=== PATIENT | male | born 1950 | race Caucasian/White ===

== ENCOUNTER 2017-06-08 07:56 | Outpatient (CLI) | payer MEDICARE, OTHER ==
--- NOTE | 2017-06-08 10:34 | MRI ---
MRI LUMBAR SPINE NONCONTRAST: DATE: 06-08-17 HISTORY: 67-year-old male with M51.16 lumbar disc disease with radiculopathy. Low back pain and left lumbar radiculopathy for approximately 2 weeks. COMPARISON: No prior MRIs. FINDINGS: The CT of the chest, abdomen, and pelvis of 02-04-14 is used to count the levels of the lumbar spine. That CT demonstrates 12 paired ribs. If the first non-rib bearing is designated as L1, then the tra nsitional level at the lumbosacral junction will be designated as L6 for the purposes of this report . Several small T2 hyperintense lesions of the right kidney, only partially included in the field of v iew, were not present on the CT of 02-04-14. Statistically, these most likely represent cysts, but co nfirmation with renal ultrasound is recommended. There are numerous bridging osteophytes protruding anteriorly into the prevertebral space throughout the lower thoracic spine and almost the entire lumbar spine (DISH). Vertebral body heights are main tained. There is heterogeneously moderately T1 hypointense bone marrow signal. This is nonspecific b ut common causes include red marrow conversion and senescent marrow changes. Marrow infiltrative pro cesses such as multiple myeloma and myelofibrosis, are less common. Other than the anterior bridgin g osteophytes, the findings by individual levels are as follows: T12-L1: Only imaged on sagittal sequences. Normal. L1-2: Normal. The conus medullaris terminates at upper L2 level. L2-3: Disc space maintained. No central spinal canal stenosis. Mild bilateral degenerative facet hyp ertrophy. A focal right facet osteophyte abuts and mildly chronically displaces the right exiting L2 nerve root in the right neural foramen, causing moderate right neural foraminal stenosis. Mild left neural foraminal stenosis. L3-4: Disc space maintained. Prominent diffuse disc bulge. Mild to moderate ligamentum flavum thicke lacey. Moderate bilateral degenerative facet hypertrophy. Moderate central spinal canal stenosis. Mod erate to severe thecal sac stenosis. Moderate right neural foraminal stenosis. Severe left neural fo raminal stenosis. L4-5: Severe bilateral degenerative facet disease causes a grade I anterolisthesis of L4 on L5. Diff use disc bulge. Moderate bilateral neural foraminal stenosis, left worse than right. Moderate ligame ntum flavum thickening and severe facet hypertrophy results in moderate central spinal canal stenosi s. Mild disc space narrowing. L5-6: Moderate sized focal central and right paracentral chronic disc/osteophyte complex (which was present on 02-04-14) indents the ventral aspect of the thecal sac, and laterally displaces the right L6 nerve root. Despite its size, it only causes a mild degree of central spinal canal stenosis. Selena re disc space narrowing. Chronic slight degenerative retrolisthesis of L5 on L6. Moderate to severe right neural foraminal stenosis. Moderate left neural foraminal stenosis. Mild bilateral degenerativ e facet changes. L6-S1: Bilateral L6 alae are fused with the S1 alae. Hypoplastic disc. Hypoplastic bilateral facet j oints. No central or neural foraminal stenosis. IMPRESSION: 1. Lumbar spondylosis, including severe facet osteoarthrosis at L4-5, and severe degenerative disc d isease at L5-6. 2. Transitional level at lumbosacral junction: L6, which is bilaterally fused to S1. 3. Moderate central spinal canal stenosis at L3-4 and L4-5. 4. High grade bilateral neural foraminal stenosis at L3-4, L4-5, and L5-6. 5. Chronic, moderate sized central and right paracentral disc/osteophyte complex at L5-6 chronically impinging on the right L6 nerve root. 6. Grade I spondylolisthesis at L4-5 due to the severe facet osteoarthrosis at this level. This spon dylolisthesis has progressed slightly since 2014. 7. Recommend renal ultrasound to further evaluate several T2 hyperintense lesions in the right kidne y. 8. Diffuse idiopathic skeletal hyperostosis (DISH). LAMONT R POS: LONNY
--- OUTSIDE RECORDS SUMMARY | 2017-06-09 01:06 | XMS | Clinical Summary ---
:1950 Author Organization [facility] Address [address] [place] [address] Phone Care Team Providers Name Role Phone , Primary Care Provider Unavailable Allergies Not on File Current Medications Not on file Active Problems Not on file Social History Tobacco Use Types Packs/Day Years Used Date Never Assessed Sex Assigned at Date Recorded Not on file Last Filed Vital Signs Not on file Plan of Treatment Not on file Results Not on filefrom Last 3 Months
== END 2017-06-08 07:57 | disposition home or self-care (01) ==
LOC: MRI 07:56
PROVIDERS: ATTEND Nurse Practitioner Family
DX: M51.16 Intervertebral disc disorders with radiculopathy, lumbar region (principal); M47.26 Other spondylosis with radiculopathy, lumbar region; M43.16 Spondylolisthesis, lumbar region; M48.061 Spinal stenosis, lumbar region without neurogenic claudication; M25.78 Osteophyte, vertebrae; M48.16 Ankylosing hyperostosis [Forestier], lumbar region; Z98.1 Arthrodesis status
CPT/HCPCS: 72148

== ENCOUNTER 2018-08-17 12:17 | Outpatient (CLI) | payer MEDICARE ==
--- NOTE | 2018-08-17 13:56 | RAD ---
PA AND LATERAL CHEST XRAY: DATE: 08/17/2018. HISTORY: Preoperative evaluation. COMPARISON: 02/05/2014. FINDINGS: Cardiac silhouette and pulmonary vasculature are within normal limits. The lungs are expanded and cl ear on today's examination with resolution of parenchymal changes at each lung base on the prior exam . There is persistent elevation of the right hemidiaphragm. Multiple remote left-sided rib fracture s are present. Degenerative changes are noted in the spine. There is a metallic clip overlying the right lung apex. This area is excluded on the lateral projection. IMPRESSION: 1. No acute cardiopulmonary process. 2. Remote left-sided rib fractures. 3. Metallic clip overlying the right lung apex. The exact location is difficult to determine. 4. Osseous densities adjacent to the medial aspect left femoral neck which could be related to eithe r heterotopic ossification or possibly intraarticular loose bodies. POS: LONNY
[2018-08-17 14:03] LABS: #Basophils 0.1 thou/uL (0.0-0.2); #Eosinphils 0.1 thou/uL (0.0-0.7); #Lymphocytes 1.1 thou/uL (1.20-3.40); #Monocytes 0.4 thou/uL (0.11-0.59); #Neutrophils 3.1 thou/uL (1.40-6.50); %Basophils 1.3 % (0.0-1.0); %Eosinophils 2.6 % (0.0-10.0); %Lymphocytes 21.9 % (21.0-51.0); %Neutrophils 65.2 % (42.0-75.0); Hemoglobin 15.7 g/dL (14.0-18.0); Mean Corpuscular HGB CONC 35.4 g/dL (32.0-36.0); Mean Corpuscular Hemoglobin 32.9 pg (27.0-31.0); Mean Corpuscular Volume 92.9 fL (78.0-98.0); Mean Platelet Volume 7.9 fL (7.4-10.4); Platelet Count 195 thou/uL (130-400); RBC Distribution Width 11.1 % (11.5-14.5); Red Blood Cell (RBC) Count 4.77 mill/uL (4.70-6.10); White Blood Cell (WBC) Count 4.8 thou/uL (4.8-10.8)
[2018-08-17 14:47] LABS: Anion Gap 15 mmol/L (10-20); BUN (Urea Nitrogen) 11 mg/dL (8.4-25.7); Calc. Creatinine Clearance 0 mL/min (70-130); Calcium 9.4 mg/dL (7.8-10.44); Carbon Dioxide 23 mmol/L (23-31); Chloride 106 mmol/L (98-107); Estimated GFR-MDRD Greater than 90; Glucose 92 mg/dL (80-115); Potassium 4.3 mmol/L (3.5-5.1); Sodium 140 mmol/L (136-145)
== END 2018-08-17 12:18 | disposition home or self-care (01) ==
LOC: LABBT 12:17
PROVIDERS: ATTEND Specialist
DX: Z01.818 Encounter for other preprocedural examination (principal); K42.9 Umbilical hernia without obstruction or gangrene
CPT/HCPCS: 71046; 80048; 85025; 93005; 93010

== ENCOUNTER 2018-08-21 07:01 | Day surgery (SDC) | payer MEDICARE ==
[2018-08-17 12:44] VITALS: BMI 42.8
[2018-08-21] MEDS ORDERED: Bupivacaine/Epinephrine 0.25% 30 ML VIAL ONE (07:14)
[2018-08-21] MEDS ORDERED: CEFAZOLIN 2 GM/50 ML BAG ONE (07:21)
[2018-08-21] MEDS ORDERED: Ketorolac Tromethamine 30 MG/ML VIAL ONE (07:21)
[2018-08-21] MEDS ORDERED: Fentanyl 100 MCG/2 ML VIAL ONE ×3 (07:55→10:34)
[2018-08-21] MEDS ORDERED: SUGAMMADEX SODIUM 200 MG/2 ML VIAL ONE (09:34)
[2018-08-21] MEDS ORDERED: Ondansetron PF 4 MG/2 ML Vial ONE ×2 (10:16→10:50)
[2018-08-21] MEDS ORDERED: Lidocaine 1% PF 5 ML VIAL ONE (10:50)
[2018-08-21] MEDS ORDERED: Dexamethasone 20 MG/5 ML VIAL ONE (10:50)
[2018-08-21] MEDS ORDERED: PROPOFOL 200 MG/20 ML VIAL ONE (10:50)
[2018-08-21] MEDS ORDERED: Glycopyrrolate 0.2 MG/ML 5 ML SYRINGE ONE (10:50)
[2018-08-21] MEDS ORDERED: HYDROcodone/Acetaminophen 5/325 mg Tablet ONE (11:55)
--- NOTE | 2018-08-22 00:44 | OP ---
DATE OF PROCEDURE: 08/21/2018 PREOPERATIVE DIAGNOSES: Ventral abdominal hernia, morbid obesity. POSTOPERATIVE DIAGNOSES: Ventral abdominal hernia, morbid obesity. OPERATION PERFORMED: Laparoscopic ventral hernia repair with mesh using an 8 cm Ventralex mesh patch. ANESTHESIA: General endotracheal. INDICATIONS FOR PROCEDURE: The patient is a 68-year-old white male. He has a BMI over 40. He presents with a symptomatic hernia at and above the level of the umbilicus. He is taken to the operating room at this time for repair. Laparoscopic approach is chosen secondary to the potential wound complications related to his obesity. DESCRIPTION OF OPERATION: Informed consent was obtained. The patient was taken to the operating room where general endotracheal anesthesia was obtained with the patient in supine position. Abdomen was prepped with ChloraPrep and draped in sterile fashion. Local anesthetic was infiltrated using 0.25% Marcaine with epinephrine. A 5 mm left lateral incision was created through which a Veress needle was passed into the peritoneal cavity. Pneumoperitoneum established using carbon dioxide up to pressure of 15 mmHg. A 5 mm trocar port was passed through this same incision. Laparoscopic camera was passed through this port. Under direct vision, two additional ports were placed including a 12 mm left upper quadrant port and a 5 mm left lower quadrant port. Attention was turned to the abdominal wall. The hernia defect was quickly visualized. There was preperitoneal fat surrounding the defect and this was dissected using electrocautery, maintaining hemostasis. The preperitoneal fat was completely cleared and the defect was completely cleared. This appeared to be a little over 2 cm in diameter. The defect was closed using 3 interrupted sutures of 2-0 Ethibond placed with GraNee needle. I placed a 4th suture of 0 Ethibond internally using the needle bottom hoop driver. At which time, I obtained a small bite of the dermis of the umbilicus to help it invert. All sutures were tied leading to excellent inversion and complete closure of the defect. An 8 cm Ventralex mesh patch was obtained. Tails were trimmed away from this. Four quadrants sutured of 0 Ethibond were placed around the circumference of this and it was passed into the abdominal cavity. These 4 sutures were withdrawn through the abdominal wall at appropriate locations around the hernia defect, providing excellent coverage around the hernia. These were each secured so as to pull the mesh snugly against the abdominal wall. I then fired a series of suture straps around the periphery of the mesh and internally as well. There was one omental adhesion to the anterior abdominal wall in the left upper quadrant from prior surgery. This was taken down with electrocautery. The fascial defect at the left upper quadrant was closed with 0 Vicryl sutures and GraNee needle. All ports and instruments were removed under direct vision. Pneumoperitoneum was carefully evacuated. 0.25% Marcaine with epinephrine was infiltrated at each port site. Skin edges approximated with 4-0 Monocryl subcuticular suture. Dermabond was placed externally. I had finally placed a compression dressing within the umbilicus using cotton balls and a Tegaderm in the usual fashion. There were no complications. The patient tolerated the procedure well and was taken to recovery room in stable condition. Job ID: [id number]
== END 2018-08-22 13:10 | disposition home or self-care (01) ==
LOC: SDC 07:01
PROVIDERS: ATTEND Specialist
PROC: 0WUF4JZ Supplement Abdominal Wall with Synthetic Substitute, Percutaneous Endoscopic Approach (ICD-10-PCS; principal; 2018-08-21)
DX: K43.9 Ventral hernia without obstruction or gangrene (principal); I10 Essential (primary) hypertension; E07.9 Disorder of thyroid, unspecified; E66.01 Morbid (severe) obesity due to excess calories; Z68.41 Body mass index [BMI] 40.0-44.9, adult; Z79.899 Other long term (current) drug therapy; Z88.6 Allergy status to analgesic agent; Z98.84 Bariatric surgery status
CPT/HCPCS: 49652; 96374; C1781; J0131; J1100; J1885; J2001; J2405; J2704; J3010

== ENCOUNTER 2021-09-15 13:37 | Outpatient (CLI) | payer MEDICARE ==
[2021-09-15 15:23] LABS: #Basophils 0.1 10x3/uL (0.0-0.2); #Eosinphils 0.2 10x3/uL (0.0-0.5); #Monocytes 0.5 10x3/uL (0.0-1.1); %Basophils 1.7 % (0.0-2.0); %Eosinophils 2.9 % (0.0-6.0); %Lymphocytes 19.5 % (18.0-47.0); %Monocytes 8.4 % (0.0-10.0); %Neutrophils 67.3 % (40.0-75.0); Mean Corpuscular HGB CONC 34.7 g/dL (32.0-36.0); Mean Corpuscular Hemoglobin 32.6 pg (27.0-33.0); Mean Corpuscular Volume 93.9 fl (81.2-95.1); Mean Platelet Volume 10.1 fl (7.4-10.4); Platelet Count 193 10x3/uL (150-450); RBC Distribution Width 12.3 % (11.5-14.5)
[2021-09-15 15:48] LABS: Prothrombin Time 10.9 sec (9.5-12.1)
[2021-09-15 15:50] LABS: Anion Gap 12 mmol/L (10-20); BUN (Urea Nitrogen) 15 mg/dL (8.4-25.7); Calc. Creatinine Clearance 0 mL/min (70-130); Calcium 8.9 mg/dL (7.8-10.44); Carbon Dioxide 26 mmol/L (23-31); Chloride 105 mmol/L (98-107); Glucose 92 mg/dL (83-110); Potassium 5.4 mmol/L (3.5-5.1); Sodium 138 mmol/L (136-145)
[2021-09-16 12:27] LABS: SARS-CoV-2 PCR by NAA Not Detected (NotDetected)
== END 2021-09-15 13:38 | disposition home or self-care (01) ==
LOC: LABBT 13:37
PROVIDERS: ATTEND Orthopaedic Surgery
DX: Z01.818 Encounter for other preprocedural examination (principal); M17.12 Unilateral primary osteoarthritis, left knee; Z20.822 Contact with and (suspected) exposure to COVID-19
CPT/HCPCS: 80048; 85025; 85610; 87081; 93005; U0003; U0005; 93010

== ENCOUNTER 2021-09-20 05:18 | Observation (INO) | payer MEDICARE ==
[2021-09-20] MEDS ORDERED: VANCOMYCIN 2 GRAM/400 ML BAG 2 GM in Premix Bag 1 BAG IVPB SCH (06:00)
[2021-09-20] MEDS ORDERED: Sodium Chloride 0.9% 100 ML ONE (06:09)
[2021-09-20] MEDS ORDERED: Tranexamic Acid 1,000 MG/10 ML VIAL ONE (06:09)
[2021-09-20] MEDS ORDERED: Midazolam HCl 2 mg/2 ml Vial ONE (06:40)
[2021-09-20] MEDS ORDERED: Lidocaine 1% (PF) 30 ML VIAL ONE (06:40)
[2021-09-20] MEDS ORDERED: Fentanyl 100 MCG/2 ML VIAL ONE ×5 (06:40→09:50)
[2021-09-20] MEDS ORDERED: Promethazine HCl 25 MG/ML VIAL IM PRN ×3 (06:52→09:30)
[2021-09-20] MEDS ORDERED: diphenhydrAMINE 25 MG CAP PO PRN (06:52)
[2021-09-20] MEDS ORDERED: Ondansetron PF 4 MG/2 ML Vial IVP PRN ×2 (06:52→09:30)
[2021-09-20] MEDS ORDERED: Acetaminophen 325 MG TAB PO PRN (06:52)
[2021-09-20] MEDS ORDERED: HYDROcodone/Acetaminophen 10/325 mg Tablet PO PRN ×2 (06:52)
[2021-09-20] MEDS ORDERED: Fentanyl 100 MCG/2 ML VIAL SLOW IVP PRN ×2 (06:52)
[2021-09-20] MEDS ORDERED: Zolpidem Tartrate 5 MG TAB PO PRN ×2 (06:52→09:30)
[2021-09-20] MEDS ORDERED: ceFAZolin 2 GM/Dextrose 50 ML IVPB ONE (07:16)
[2021-09-20] MEDS ORDERED: Bupivacaine HCl 0.5%/Epinephrine 1:200,000/PF 30 ml Vial ONE (07:25)
[2021-09-20] MEDS ORDERED: Ondansetron PF 4 MG/2 ML Vial ONE (07:25)
[2021-09-20] MEDS ORDERED: Dexamethasone 20 MG/5 ML VIAL ONE (07:25)
[2021-09-20] MEDS ORDERED: Ketorolac Tromethamine 30 MG/ML VIAL ONE (07:25)
[2021-09-20] MEDS ORDERED: PROPOFOL 200 MG/20 ML VIAL ONE (07:25)
[2021-09-20] MEDS ORDERED: Bupivacaine PF 0.5% 30 ML VIAL ONE (08:28)
[2021-09-20] MEDS ORDERED: Promethazine HCl 25 MG/ML VIAL IVPB PRN (09:15)
[2021-09-20] MEDS ORDERED: Ondansetron HCl/PF 4 MG/2 ML Vial IVP PRN (09:15)
[2021-09-20] MEDS ORDERED: Fentanyl 100 MCG/2 ML VIAL IV PRN (09:21)
[2021-09-20] MEDS ORDERED: Ropivacaine 0.2% 550 ML 550 ML NERVE BLCK SCH (09:30)
[2021-09-20] MEDS ORDERED: traMADol HCl 50 MG TAB PO PRN ×2 (09:30)
[2021-09-20] MEDS ORDERED: hydrALAZINE 20 MG/ML VIAL ONE (10:09)
[2021-09-20] MEDS ORDERED: Labetalol HCl 100 MG/20 ML VIAL ONE (10:09)
[2021-09-20] MEDS: Amlodipine 5 mg/Benazepril 20 mg CAP PO SCH (11:50)
[2021-09-20] MEDS: Prenatal Vitamin 1 TAB PO SCH (11:51)
[2021-09-20] MEDS: Aspirin 81 mg Enteric Coated Tablet PO SCH ×2 (11:51→20:58)
[2021-09-20] MEDS: Calcium Carbonate 600 MG + Vit D TAB PO SCH (11:51)
[2021-09-20] MEDS ORDERED: Labetalol HCl 100 MG/20 ML VIAL SLOW IVP SCH (12:15)
[2021-09-20] MEDS: Sodium Chloride 0.9% 1,000 ML IV SCH ×2 (12:32→18:42)
[2021-09-20] MEDS: Ketorolac Tromethamine 30 MG/ML VIAL IVP SCH ×3 (12:33→23:47)
[2021-09-20] MEDS ORDERED: Ketorolac Tromethamine 30 MG/ML VIAL IM SCH (14:00)
[2021-09-20] MEDS: ceFAZolin 2 GM/Dextrose 50 ML 2 GM in Premix Bag 1 BAG IVPB SCH ×2 (15:53→22:15)
[2021-09-21] MEDS: HYDROcodone/Acetaminophen 10/325 mg Tablet PO PRN ×3 (04:32→19:11)
[2021-09-21] MEDS: Sodium Chloride 0.9% 1,000 ML IV SCH ×3 (04:55→23:04)
[2021-09-21] MEDS: Levothyroxine Sodium 100 MCG TAB PO SCH (05:14)
[2021-09-21] MEDS: Ketorolac Tromethamine 30 MG/ML VIAL IVP SCH ×4 (05:15→23:06)
[2021-09-21 05:54] LABS: Hemoglobin 12.7 g/dL (14.0-18.0); Mean Corpuscular Hemoglobin 33.8 pg (27.0-31.0); Mean Corpuscular Volume 96.8 fL (78.0-98.0); Mean Platelet Volume 7.2 fL (7.4-10.4); Platelet Count 150 thou/uL (130-400); RBC Distribution Width 11.6 % (11.5-14.5); Red Blood Cell (RBC) Count 3.76 mill/uL (4.70-6.10); White Blood Cell (WBC) Count 6.6 thou/uL (4.8-10.8)
[2021-09-21] MEDS ORDERED: Levothyroxine 150 MCG TAB PO SCH (06:00)
[2021-09-21] MEDS: Aspirin 81 mg Enteric Coated Tablet PO SCH ×2 (09:57→21:30)
[2021-09-21] MEDS: Calcium Carbonate 600 MG + Vit D TAB PO SCH (09:57)
[2021-09-21] MEDS: Ferrous Gluconate 324 MG TAB PO SCH ×2 (09:57→21:30)
[2021-09-21] MEDS: Multivitamin W/ Minerals 1 TAB PO SCH (09:58)
[2021-09-21] MEDS: Prenatal Vitamin 1 TAB PO SCH (09:59)
[2021-09-21] MEDS: Senokot S 8.6-50 MG TAB PO SCH ×2 (09:59→21:31)
[2021-09-21] MEDS: Amlodipine 5 mg/Benazepril 20 mg CAP PO SCH (12:45)
[2021-09-21 19:58] VITALS: BMI 41.4
[2021-09-22] MEDS: HYDROcodone/Acetaminophen 10/325 mg Tablet PO PRN ×2 (04:32→09:01)
[2021-09-22] MEDS: Levothyroxine Sodium 100 MCG TAB PO SCH (06:31)
[2021-09-22] MEDS: Ketorolac Tromethamine 30 MG/ML VIAL IVP SCH (06:31)
[2021-09-22] MEDS: Ferrous Gluconate 324 MG TAB PO SCH (08:07)
[2021-09-22] MEDS: Multivitamin W/ Minerals 1 TAB PO SCH (08:07)
[2021-09-22] MEDS: Senokot S 8.6-50 MG TAB PO SCH (08:07)
[2021-09-22] MEDS: Amlodipine 5 mg/Benazepril 20 mg CAP PO SCH (08:07)
[2021-09-22] MEDS: Prenatal Vitamin 1 TAB PO SCH (08:07)
[2021-09-22] MEDS: Sodium Chloride 0.9% 1,000 ML IV SCH (08:08)
[2021-09-22] MEDS: Calcium Carbonate 600 MG + Vit D TAB PO SCH (08:08)
[2021-09-22] MEDS: Aspirin 81 mg Enteric Coated Tablet PO SCH (08:08)
[2021-09-22 09:12] VITALS: BP 146/55; TEMP 97.9
== END 2021-09-22 11:20 | disposition home or self-care (01) ==
LOC: SDC 05:18 → INTOOBSV 12:10 → SURG B 12:10
PROVIDERS: ADMIT Orthopaedic Surgery; ATTEND Orthopaedic Surgery
PROC: 0SRD0J9 Replacement of Left Knee Joint with Synthetic Substitute, Cemented, Open Approach (ICD-10-PCS; principal; 2021-09-20)
PROC: 8E0YXBZ Computer Assisted Procedure of Lower Extremity (ICD-10-PCS; 2021-09-20)
PROC: 3E0T3BZ Introduction of Anesthetic Agent into Peripheral Nerves and Plexi, Percutaneous Approach (ICD-10-PCS; 2021-09-20)
DX: M17.0 Bilateral primary osteoarthritis of knee (principal); I10 Essential (primary) hypertension; E07.9 Disorder of thyroid, unspecified; Z87.891 Personal history of nicotine dependence; Z79.899 Other long term (current) drug therapy; Z98.84 Bariatric surgery status
CPT/HCPCS: 20985; 27447; 64448; 73560; 85027; 96374; 96375; 96376 ×3; 97110 ×2; 97116 ×2; 97139 ×2; 97530 ×3; A4306; C1713; C1776; G0378 ×3; 36415; J0360; J0690; J1100; J1885; J2001; J2250; J2405; J2704; J2795; J3010; J3370; J3490; J7050; S0020